=== PATIENT | male | born 1930 | race Caucasian/White ===

== ENCOUNTER 2017-08-02 04:16 | Inpatient (IN) | payer MEDICARE ==
[2017-08-02 04:28] LABS: Glucose,Whole Blood 91 mg/dL (75-99)
--- NOTE | 2017-08-02 04:29 | ED ---
Neuro HPI - General Stated Complaint: weakness Time Seen by Provider: 08/02/17 04:20 Source: patient, family, EMS Mode of arrival: EMS Limitations: no limitations - History of Present Illness -: hour(s) Initial Comments: 's patient is an 86-year-old man who comes to the hospital by ambulance to be evaluated because he thought he was having a stroke. Patient states that he had awakened around 2 in the morning to urinate. He found that he was not able to get his feet to move. He states that it seemed to be affecting both sides equally. He denies having a focality to the leg weakness. The patient also reportedly was having trouble with expressing himself. He was not able to get his words out. Location: speech, left leg, right leg History of same: No Place: home Quality: weak Improves With: none Worsens With: none On Anticoagulants: No Context: sudden onset - Related Data Allergies/Adverse Reactions: Allergies Allergy/AdvReac Type Severity Reaction Status Date / Time cephalexin [From Keflex] Allergy Rash/Hives Verified 08/02/17 04:25 Penicillins Allergy Rash/Hives Verified 08/02/17 04:25 Review of Systems ROS Statement: Those systems with pertinent positive or pertinent negative responses have been documented in the HPI. ROS Other: All systems not noted in ROS Statement are negative. Constitutional: Reports: weakness. Denies: fever, chills Eyes: Denies: vision change Respiratory: Denies: cough, dyspnea Cardiovascular: Denies: chest pain, palpitations, syncope Gastrointestinal: Denies: abdominal pain, vomiting, diarrhea Genitourinary: Denies: dysuria, hematuria Musculoskeletal: Denies: back pain Skin: Denies: rash Neurological: Reports: weakness (Bilateral legs), abnormal gait. Denies: headache, numbness, paresthesias General Exam Limitations: no limitations General appearance: alert, in no apparent distress Head exam: Present: atraumatic, normocephalic Eye exam: Present: normal appearance. Absent: scleral icterus, conjunctival injection ENT exam: Present: normal oropharynx Neck exam: Present: normal inspection, full ROM Respiratory exam: Present: normal lung sounds bilaterally. Absent: respiratory distress, wheezes, rales, rhonchi, stridor Cardiovascular Exam: Present: regular rate, normal rhythm, normal heart sounds. Absent: systolic murmur, diastolic murmur, rubs, gallop GI/Abdominal exam: Present: soft. Absent: distended, tenderness, guarding, rebound, mass Extremities exam: Present: normal inspection, normal capillary refill. Absent: pedal edema, calf tenderness Back exam: Present: normal inspection. Absent: CVA tenderness (R), CVA tenderness (L) Neurological exam: Present: alert. Absent: oriented X3 Skin exam: Present: warm, dry, intact, normal color. Absent: rash Stroke MDM - Lab Data Lab Results 08/02/17 Range/Units 04:27 POC Glucose (mg/dL) 91 (75-99) mg/dL POC Glu Edge Burnisher ID Yamel Cooney - EKG Data -: EKG Interpreted by Tn EKG shows normal: sinus rhythm, axis (Normal), intervals (Normal), QRS complexes (Left anterior fascicular block) Rate: normal (Rate 66 bpm) When compared to previous EKG there are: no significant change Past Medical History Past Medical History: Dementia Additional Past Medical History / Comment(s): prostate cancer, skin cancer History of Any Multi-Drug Resistant Organisms: None Reported Past Surgical History: Hernia Repair Past Psychological History: No Psychological Hx Reported Smoking Status: Never smoker Past Alcohol Use History: None Reported Past Drug Use History: None Reported Course Vital Signs 08/02/17 04:19 Temperature 97.5 F L Pulse Rate 66 Respiratory 16 Rate Blood Pressure 202/107 O2 Sat by Pulse 98 Oximetry Disposition Referrals: Ronnie Lindsey DO [Primary Care Provider] - 1-2 days
[2017-08-02 04:38] LABS: Basophils % (A) 0 %; Eosinophils # (A) 0.3 k/uL (0-0.7); Eosinophils % (A) 4 %; HCT 46.1 % (39.0-53.0); HGB 15.8 gm/dL (13.0-17.5); Lymphocytes # (A) 0.9 k/uL (1.0-4.8); Lymphocytes % (A) 14 %; MCHC 34.3 g/dL (31.0-37.0); MCV 84.7 fL (80.0-100.0); Mean Platelet Volume 7.2; Monocytes # (A) 0.4 k/uL (0-1.0); Monocytes % (A) 7 %; Neutrophils # (A) 4.6 k/uL (1.3-7.7); Neutrophils % (A) 74 %; Platelet Count 181 k/uL (150-450); RBC 5.44 m/uL (4.30-5.90); RDW 13.9 % (11.5-15.5); WBC 6.2 k/uL (3.8-10.6)
[2017-08-02 04:46] LABS: ALT 31 U/L (21-72); AST 24 U/L (17-59); Albumin 3.7 g/dL (3.5-5.0); Alkaline Phosphatase 95 U/L (38-126); Anion Gap 11 mmol/L; Blood Urea Nitrogen 19 mg/dL (9-20); Calcium 9.3 mg/dL (8.4-10.2); Carbon Dioxide 26 mmol/L (22-30); Chloride 108 mmol/L (98-107); Glucose 93 mg/dL (74-99); Partial Thromboplastin Time 25.2 sec (22.0-30.0); Potassium 4.3 mmol/L (3.5-5.1); Sodium 145 mmol/L (137-145); Total Bilirubin 0.5 mg/dL (0.2-1.3); Total Protein 6.2 g/dL (6.3-8.2)
[2017-08-02 04:58] LABS: Creatine Kinase 33 U/L (55-170)
--- NOTE | 2017-08-02 05:02 | CT ---
EXAMINATION TYPE: CT brain wo con DATE OF EXAM: 08/02/2017 COMPARISON: NONE HISTORY: NEURO DEFICITS CT DLP: 1054.20 mGycm Automated exposure control for dose reduction was used. FINDINGS: There is some cerebral cortical atrophy. There is no mass effect nor midline shift. There is no sign of intracranial hemorrhage. There are patchy areas of hypodensity in the periventricular white matter with scattered lacunar infarcts. The calvarium is intact. There is thinning of the corpus callosum. IMPRESSION: CEREBRAL ATROPHY AND CHRONIC SMALL VESSEL ISCHEMIA. BILATERAL LACUNAR INFARCTS. NO ACUTE INTRACRANIAL ABNORMALITY.
--- NOTE | 2017-08-02 05:08 | XR ---
EXAMINATION TYPE: XR chest 2V DATE OF EXAM: 08/02/2017 COMPARISON: NONE HISTORY: Neuro deficits. Weakness TECHNIQUE: Frontal and lateral views of the chest are obtained. FINDINGS: There is no heart failure nor confluent pneumonic infiltrate. Costophrenic angles are kaykay r. Mediastinum is normal. There are chest leads. Bony thorax is intact. IMPRESSION: No active cardiopulmonary disease.
[2017-08-02 05:11] LABS: Troponin I <0.012 ng/mL (0.000-0.034)
[2017-08-02] MEDS ORDERED: ASPIRIN 325 MG TAB PO STA (06:38)
[2017-08-02] MEDS: SODIUM CHLORIDE 0.9% 1,000 ML IV SCH ×2 (07:51→15:34)
[2017-08-02] MEDS: FAMOTIDINE 20 MG TAB PO SCH ×2 (08:11→13:03)
--- NOTE | 2017-08-02 10:16 | CT ---
CT brain without contrast HISTORY: Right facial droop, dysphasia Helical acquisition through the brain. Exam correlated to prior CT brain of same date earlier time. There is some motion on the exam. There is evidence of chronic small vessel ischemia as on prior exam, lacunar infarcts are noted bilat erally involving the basal ganglia on the right, thalamus and basal ganglia on the left. Periventricu lar white matter shows low attenuation. There is no hemorrhage or hydrocephalus. Stinson-white different iation appears maintained. The calvarium is intact. Mild mucosal disease present in the maxillary sin us. IMPRESSION: Stable exam. No acute abnormalities evident. Chronic small vessel ischemic changes as sharee cribed.
--- NOTE | 2017-08-02 10:29 | US ---
EXAMINATION TYPE: US carotid duplex BILAT DATE OF EXAM: 08/02/2017 COMPARISON: NONE CLINICAL HISTORY: Stenosis. weakness EXAM MEASUREMENTS: RIGHT: Peak Systolic Velocity (PSV) cm/sec ----- Right CCA: 76.8 ----- Right ICA: 74.6 ----- Right ECA: 132.2 ICA/CCA ratio: 1.0 RIGHT: End Diastole cm/sec ----- Right CCA: 13.1 ----- Right ICA: 15.3 ----- Right ECA: 12.8 LEFT: Peak Systolic Velocity (PSV) cm/sec ----- Left CCA: 88.5 ----- Left ICA: 109.6 ----- Left ECA: 183.3 ICA/CCA ratio: 1.2 LEFT: End Diastole cm/sec ----- Left CCA: 15.7 ----- Left ICA: 30.3 ----- Left ECA: 16.0 VERTEBRALS (direction of flow): Right Vertebral: unable to visualize Left Vertebral: Antegrade Rhythm: Normal *Technical limitations, patient unable to hold still during exam. Mild plaque right bifurcation. Mild to moderate plaque left bifurcation. Increased velocities left ECA. Unable to visualize right verteb ral artery - unable to detect any blood flow at this time IMPRESSION: 1. Mild bilateral calcific atheromatous changes of the carotid arterial systems. No hemodynamically s ignificant stenosis within either visualized common carotid artery or internal carotid artery. 2. Inability to visualize the right vertebral artery during the examination given technical limitatio ns as described above. CTA could be performed to evaluate for patency. 3. 50-69% stenosis within the bilateral external carotid arteries is incidentally seen.
--- NOTE | 2017-08-02 10:29 | CT ---
EXAMINATION TYPE: CODE STROKE: CTA head neck DATE OF EXAM: 08/02/2017 HISTORY: Rt facial droop, dysphagia COMPARISON: NONE CT DLP: 281.5 mGycm. Automated Exposure Control for Dose Reduction was Utilized. TECHNIQUE: CTA scan of the neck is performed with IV Contrast, patient injected with 65 mL of Isovue 370, axial images are obtained, coronal and sagittal reformatted images are reviewed. Three-D recons tructed images are created on an independent workstation and reviewed. FINDINGS: Carotid/Vascular Structures: Thoracic aorta is patent. 3 super aortic branch vessels are present. The left and right common carotid, internal and external carotid arteries are patent, no evidence stenos is. Left and right subclavian arteries are patent. Left vertebral artery is dominant, right vertebral artery is diminutive. Basilar artery also somewhat diminutive and not well seen in its distal aspect. Internal carotid arteries are patent bilaterally, there is no evident embolus or dissection. Other: There is dental amalgam causing some artifact over portions of the exam. Lung apices are unrem arkable. IMPRESSION: No evident embolism or dissection. Diminutive basilar artery, portion of the basilar jerald ry is not visualized. MRA may be of benefit.
[2017-08-02] MEDS: ASPIRIN 300 MG SUPP RECTAL SCH (10:34)
[2017-08-02] MEDS: CLOPIDOGREL 75 MG TAB PO SCH ×2 (10:44→13:03)
[2017-08-02 16:37] LABS: Glucose,Whole Blood 89 mg/dL (75-99)
--- NOTE | 2017-08-02 17:21 | P.CNNES ---
History of Present Illness Consult date: 08/02/17 Requesting physician: Navdeep Martinez Reason for Consult: CVA History of Present Illness: Patient is a pleasant 86-year-old male who is being evaluated by the neurology service on 08/02/2017 per the request of Dr. Martinez for CVA. Patient has a past medical history of dementia, prostate cancer and skin cancer. Patient is having speech difficulty and unable to provide history. History is obtained from staff and the chart. Patient states he woke up about 2 AM to urinate. Reportedly he was unable to get his feet to move to allow him to walk. This is affecting both sides equally. Patient was also having trouble with speech. Patient was having expressive aphasia. He was brought to [facility] for further evaluation. CT of the brain was done on admission which showed cerebral atrophy and chronic small vessel ischemia. CT also revealed bilateral lacunar infarcts. No hemorrhagic process. Carotid Doppler was done which showed no hemodynamically significant stenosis. Staff reports patient was able to converse this morning and he was sitting up eating breakfast. Patient suddenly lost ability to speak. Code stroke was called and patient went for a stat CT of the brain which was read as stable as compared to initial CT of the brain. CTA was obtained which showed no evidence of embolism or dissection. Patient was on aspirin 81 mg by mouth daily in the home setting. Vital signs on admission included temperature 97.5, pulse 66, respiratory rate 16, blood pressure 202/107, and oxygen saturation 98% on room air. Labs on admission were essentially unremarkable. At the time of my evaluation, patient is resting comfortably in bed and appears to be in no acute distress. Patient is awake and alert however he is extremely weak. No speech noted. Review of Systems REVIEW OF SYSTEMS: Otherwise unremarkable and noncontributory. Past Medical History Past Medical History: Dementia, Hypertension, Memory Impairment, Osteoarthritis (OA) Additional Past Medical History / Comment(s): Prostate cancer with radiation treatments, melanoma skin cancer with removal R upper arm, past HTN but was taken off meds, arthritis multiple joints, low back pain if he walks too far. History of Any Multi-Drug Resistant Organisms: None Reported Past Surgical History: Hernia Repair Additional Past Surgical History / Comment(s): Bilateral inguinal hernia repairs , bilateral cataract removals/IOL, melanoma removed R upper arm, colonoscopies. Past Anesthesia/Blood Transfusion Reactions: No Reported Reaction Smoking Status: Never smoker - Past Family History Mother Family Medical History: Hypertension Additional Family Medical History / Comment(s): Pt states he mother had multiple surgeries but cannot recall what kinds. Father Family Medical History: Respiratory Disorder Additional Family Medical History / Comment(s): Father worked in the [employer]. He of black lung disease at the age of 52 yrs. Medications and Allergies Home Medications Medication Instructions Recorded Confirmed Type Aspirin 325 mg PO Q4H PRN 08/02/17 08/02/17 History Aspirin EC [Ecotrin Low Dose] 81 mg PO DAILY 08/02/17 08/02/17 History Cholecalciferol [Vitamin D3] 1,000 unit PO BID@0700,1200 08/02/17 08/02/17 History Donepezil [Aricept] 10 mg PO DAILY 08/02/17 08/02/17 History Tamsulosin [Flomax] 0.8 mg PO HS 08/02/17 08/02/17 History Allergies Allergy/AdvReac Type Severity Reaction Status Date / Time cephalexin [From Keflex] Allergy Rash/Hives Verified 08/02/17 06:59 Penicillins Allergy Rash/Hives Verified 08/02/17 06:59 Physical Examination - Vital Signs Vital Signs: Vital Signs Temp Pulse Pulse Pulse Resp BP BP 08/02/17 15:38 98.3 F 70 18 192/88 08/02/17 13:38 61 18 187/78 08/02/17 13:08 74 18 182/77 08/02/17 11:38 97.6 F 59 L 18 179/83 08/02/17 11:14 59 L 18 175/80 08/02/17 10:23 68 18 173/75 08/02/17 10:08 68 18 169/77 08/02/17 09:53 77 18 190/86 08/02/17 09:38 67 18 184/91 08/02/17 08:38 65 18 173/84 08/02/17 07:57 65 18 183/82 08/02/17 07:38 67 18 194/79 08/02/17 06:07 66 18 175/82 08/02/17 04:41 62 18 168/80 08/02/17 04:19 97.5 F L 66 16 202/107 Pulse Ox 08/02/17 15:38 97 08/02/17 13:38 95 08/02/17 13:08 96 08/02/17 11:38 96 08/02/17 11:14 97 08/02/17 10:23 97 08/02/17 10:08 95 08/02/17 09:53 95 08/02/17 09:38 97 08/02/17 08:38 08/02/17 07:57 95 08/02/17 07:38 08/02/17 06:07 94 L 08/02/17 04:41 95 08/02/17 04:19 98 Intake and Output 08/02/17 08/02/17 08/02/17 06:59 14:59 22:59 Other: Weight 63.503 kg PHYSICAL EXAM: GENERAL APPEARANCE: Patient is a well-developed, male who appears to be in no acute distress. HEENT: Normocephalic, atraumatic, no facial asymmetry is seen. Neck is supple with no masses felt. CARDIOVASCULAR: Regular rate and rhythm. ABDOMEN: Nontender, nondistended. EXTREMITIES: Show no edema or clubbing. NEUROLOGICAL EXAM: Patient is awake, alert, and aphasic. Patient does move all 4 extremities to command but he is unable to lift extremities up off the bed. Strength is 2/5 in all 4 extremities. No facial asymmetry is seen on cranial nerve testing. Sensory exam is normal to light touch in all 4 extremities. No tremors or seizure-like activity noted. Results - Laboratory Findings CBC and BMP: 08/02/17 04:24 08/02/17 04:24 Abnormal Lab Findings: Abnormal Labs 08/02/17 08/02/17 08/02/17 04:24 04:24 04:24 Lymphocytes # 0.9 L Chloride 108 H Total Creatine Kinase 33 L Total Protein 6.2 L Assessment and Plan Plan: Impression: 1. CVA 2. Expressive aphasia 3. Generalized weakness 4. Hypertension 5. Dementia 6. History of prostate cancer Recommendation: It does appear that patient suffered an acute cerebrovascular accident. As mentioned above, CT of the brain revealed bilateral lacunar infarcts. Code stroke was called this morning when patient became aphasic and had increased weakness in all [address] was repeated which was read as stable. CTA showed no embolic ordered dissection process. Patient will need MRI of the brain as there is concern for brain stem CVA. Carotid Dopplers were negative for any hemodynamically significant stenosis. I will switch his aspirin to Plavix. I will order an EEG, fasting lipid panel, and homocysteine level. I will order PT OT and speech to evaluate and treat. Continue neurological checks. I will continue to follow with you. Further recommendations to follow. Thank you for allowing me to participate in the care of your patient. Feel free to call with any questions or concerns. I performed an examination of the patient and discussed the management with the [employer]ARE[employer] WORK[employer]. I have reviewed the W[employer]HOUSE WORKER [employer] notes and agree with the findings and plan of care.
[2017-08-02 20:50] LABS: Glucose,Whole Blood 87 mg/dL (75-99)
--- NOTE | 2017-08-02 23:46 | HP ---
HISTORY AND PHYSICAL DATE OF ADMISSION: 08/02/2017 DATE OF SERVICE: 08/02/2017 PRESENTING COMPLAINT: Difficulty walking, speech. HISTORY OF PRESENTING COMPLAINT: This is an 86-year-old patient of Dr. Lindsey. History is obtained by the ER physician, the notes, the nursing. The patient's chronic stable medical conditions include dementia, hypertension, patient was off medications, osteoarthritis. The patient does get back pain while walking and history of prostate cancer treated with radiation treatment. The patient got up this morning, finding it difficult to walk and some trouble with his speech. He was not able to get his words out. Subsequently late in the morning in the ER, the patient stopped speaking totally. Repeat CT scan of the brain was done that did not show anything acute. Dr. Alicea was called because of intense history of stroke. The patient is not felt to be a candidate for tPA. The patient had did have an NG tube placed. The patient is currently not able to give any history, not even following commands. REVIEW OF SYSTEMS: The patient is nonverbal. PAST MEDICAL HISTORY: Dementia, prostate cancer treated with radiation treatment, hypertension off medications, osteoarthritis, back pain while walking. PAST SURGICAL HISTORY: Hernia repair, bilateral inguinal hernia repair, bilateral cataract removal, melanoma removed from the right upper arm. SOCIAL HISTORY: Lives with his . No smoking. The patient was a heavy drinker up to 32 years ago. FAMILY HISTORY: Hypertension. HOME MEDICATIONS: 1. Aspirin 325. 2. Vitamin D3 1000 units p.o. b.i.d. 3. Flomax 0.8 mg p.o. q.h.s. 4. Aricept 10 mg p.o. daily. 5. Aspirin 81 mg p.o. daily. ALLERGIES: To KEFLEX and PENICILLIN. EXAMINATION: VITAL SIGNS: On presentation, 97.5 pulse 56, respirations 16, blood pressure was 202/107, pulse ox 98% on room air on presentation. GENERAL APPEARANCE: Average build, lying in bed, lethargic. EYES: Pupils equal. Conjunctivae normal with arcus senilis. HEENT: External nose and ears normal. Oral cavity normal. NG tube in place. NECK: JVD unable to assess. Mass not palpable. RESPIRATORY: Effort normal. LUNGS: Decreased breath sounds. CARDIOVASCULAR: First and second sounds normal. No edema. ABDOMEN: Soft, nontender. Liver and spleen not palpable. LYMPHATIC: No lymph node palpable in neck or axillae. PSYCHIATRY: Unable to assess. NEUROLOGICAL: Pupils equal, reactive. No facial asymmetry. The patient's reflexes are increased on the right side and plantars are upgoing. The patient is not following commands. Responds to pain and does move his eyes spontaneously. INVESTIGATIONS: White count 6.2, hemoglobin 15.8. Potassium 4.3, BUN and creatinine are normal. Troponin x3 negative. EKG shows normal sinus rhythm. Initial CT scan of the brain showed cerebral atrophy and bilateral lacunar infarct, some scattered. Repeat CT scan of brain as above. Carotid Doppler 50%-69% stenosis within the bilateral external carotid arteries. ASSESSMENT: 1. This patient presents with bilateral lower extremity weakness affecting the speech, initially was finding difficulty focusing words. Then completely progressed. Now patient's sensorium is also altered. Most likely this is a brainstem stroke which seems to have extended, probably affecting the reticular activating system. Most likely this is ischemic stroke. 2. Alzheimer dementia. 3. Essential hypertension. 4. Primary osteoarthritis. PLAN: NG tube was placed in the ER. The patient the patient is getting aspirin through there, getting IV fluids. Will also start the patient on Lipitor. Neuro checks are in place. We will do aspiration precautions. The patient's code status is DO NOT RESUSCITATE. MRI is pending. Prognosis does not appear to be good. Normally with an acute stroke, blood pressure is typically not treated for the initial 24 hours per guidelines at 220 systolic and 120 diastolic. MMODL / IJN: [id number] /
[2017-08-03] MEDS: FAMOTIDINE 20 MG TAB PO SCH ×3 (01:00→22:21)
[2017-08-03] MEDS: ATORVASTATIN 40 MG TAB PO SCH ×2 (01:00→13:23)
[2017-08-03 02:34] LABS: Glucose,Whole Blood 87 mg/dL (75-99)
[2017-08-03] MEDS: SODIUM CHLORIDE 0.9% 1,000 ML IV SCH ×3 (03:00→22:22)
[2017-08-03] MEDS: ENOXAPARIN 40 MG/0.4 ML SYRINGE SQ SCH ×2 (05:53→13:07)
[2017-08-03 05:57] LABS: Glucose,Whole Blood 84 mg/dL (75-99)
[2017-08-03 07:16] LABS: Cholesterol 161 mg/dL (<200); HDL Cholesterol 44 mg/dL (40-60); LDL Cholesterol,Calculated 104 mg/dL (0-99); Triglycerides 66 mg/dL (<150)
[2017-08-03] MEDS ORDERED: ASPIRIN 325 MG TAB PO SCH ×2 (09:00→13:30)
--- NOTE | 2017-08-03 11:56 | MR ---
Brain MR history: Cerebrovascular accident, altered mental status, unresponsive Correlated to CT brain 08/02/2017, CTA brain 08/02/2017 Restricted diffusion is noted within the paramjit bilaterally. Cortical atrophy is again noted. Correspon ding hyperintensity noted on inversion recovery and T2-weighted sequences within the paramjit. There is n o hemorrhage or hydrocephalus. Periventricular confluent and scattered hyperintensities are present o n inversion recovery and T2-weighted sequences likely due to chronic small vessel ischemia. Inflammat ory change present within the ethmoid air cells. IMPRESSION: Subacute pontine infarct.
[2017-08-03] MEDS: ASPIRIN 300 MG SUPP RECTAL SCH (13:22)
[2017-08-03] MEDS: CLOPIDOGREL 75 MG TAB PO SCH (13:24)
[2017-08-03] MEDS: ASPIRIN 325 MG TAB NG-TUBE SCH (13:29)
[2017-08-03] MEDS ORDERED: ASPIRIN 325 MG TAB NG-TUBE SCH (13:30)
[2017-08-03 16:34] LABS: Glucose,Whole Blood 73 mg/dL (75-99)
--- NOTE | 2017-08-03 18:56 | PN ---
PROGRESS NOTE DATE OF SERVICE: August 03, 2017. PRESENT COMPLAINT: Acute stroke. INTERVAL HISTORY: This patient presented with acute stroke. The patient does open his eyes, has NG tube was placed. Maybe following some commands, not able to speak at all. The patient's and daughter at the bedside. REVIEW OF SYSTEMS: Patient is nonverbal. CURRENT MEDICATIONS: Reviewed that include Plavix and Lipitor. PHYSICAL EXAMINATION: Temperature 97.8, pulse 85, respiratory 18, blood pressure 188/84, pulse ox 96% on room air. General appearance: Lying in bed, eyes closed. Eyes: Pupils equal, conjunctivae normal. HEENT external appearance of nose and ears normal. NG tube in place. Neck JVD unable to assess. Mass not palpable. Respiratory effort normal. Lungs decreased breath sounds. Cardiovascular 1st and 2nd sounds normal. No edema. ABDOMEN: Soft. Liver and spleen not palpable. Neurological: Just possibly opens eyes on commands. Bilateral plantars are upgoing. INVESTIGATIONS: LDL 104. MRI of the brain shows infarct in the paramjit. ASSESSMENT: 1. 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 2. Alzheimer's dementia. 3. Moderate cognitive impairment from Alzheimer's dementia. 4. Essential hypertension. 5. Primary osteoarthritis. PLAN: Continue current medication and treatment plan. We will add amlodipine 5 mg through the NG-tube. ADVANCED CARE PLANNING: This was discussed with the patient's and daughter. The patient already has a advanced directive that does discuss DO NOT RESUSCITATE. The patient's overall guarded prognosis was discussed. We will see how the patient does in the next 24-48 hours and if the patient's quality not good, then we will probably may have to go to comfort route. All depends on how this goes. The patient's is the next of kin and other children involved. Questions were answered. In the meantime, continue medication and treatment plan. Continue advanced care planning: Additional 20 minutes were taken in addition to the progress note for this part of the care. MMODL / IJN: [id number] /
[2017-08-03 20:48] LABS: Glucose,Whole Blood 74 mg/dL (75-99)
[2017-08-04] MEDS: DEXTROSE 5%-0.45% NACL 1,000 ML IV SCH ×2 (00:21→19:39)
[2017-08-04] MEDS: amLODIPine 5 MG TAB PO SCH ×2 (00:21→09:16)
[2017-08-04 05:53] LABS: Glucose,Whole Blood 91 mg/dL (75-99)
[2017-08-04] MEDS: CLOPIDOGREL 75 MG TAB PO SCH (09:15)
[2017-08-04] MEDS: FAMOTIDINE 20 MG TAB PO SCH ×2 (09:15→20:43)
[2017-08-04] MEDS: ATORVASTATIN 40 MG TAB PO SCH (09:15)
[2017-08-04] MEDS: ENOXAPARIN 40 MG/0.4 ML SYRINGE SQ SCH (09:15)
[2017-08-04] MEDS: ASPIRIN 325 MG TAB NG-TUBE SCH (09:16)
[2017-08-04 09:24] LABS: Glucose,Whole Blood 91 mg/dL (75-99)
[2017-08-04 11:48] LABS: Glucose,Whole Blood 97 mg/dL (75-99)
[2017-08-04 16:39] LABS: Glucose,Whole Blood 99 mg/dL (75-99)
[2017-08-04] MEDS ORDERED: amLODIPine 5 MG TAB PO ONE (18:00)
--- NOTE | 2017-08-04 18:29 | EEG ---
ELECTROENCEPHALOGRAM REPORT DATE OF SERVICE: August 03, 2017. REASON FOR TESTING: Stroke. DESCRIPTION OF THE PROCEDURE: This EEG was performed using a 21 channel digital electroencephalograph, following international 10-20 system. DESCRIPTION OF THE RECORDING: From the beginning of the tracing, and with patient's eyes closed, the background rhythm was mostly consisting of 7 Hz theta frequency in the posterior occipital leads. No obvious asymmetry is seen. Photic stimulation was performed with a minimal driving response seen. No pathological waves were elicited. Rare movement artifacts are seen. Hyperventilation was not performed. The patient does reach stage II of sleep during the tracing and occasional sleep spindles are seen. No epileptiform discharges were seen. His EKG lead showed a regular rate and rhythm. INTERPRETATION: This asleep and awake EEG is abnormal due to presence of generalized slowing of the background rhythm, mostly in the theta range. This is consistent with mild encephalopathy. No epileptiform discharges were seen. The absence of epileptiform discharges does not rule out the diagnosis of epilepsy, therefore clinical correlation is recommended. MMJULI / IJN: [id number] /
--- NOTE | 2017-08-04 19:42 | P.PN ---
Subjective Progress Note Date: 08/04/17 Patient is an 86-year-old male who is being followed by the neurology service for stroke. Patient does have history of dementia, prostate cancer, and skin cancer. History was obtained from staff and the chart. Patient was brought to [facility] for strokelike symptoms. Computed tomography scan of the brain showed cerebral atrophy and chronic small vessel ischemia. MRI of the brain was obtained which showed acute pontine infarct. Patient had sudden loss of ability to speak and a code stroke was called. Stat CT of the brain was unchanged from prior CT of the brain. CTA was done which showed no evidence of embolism or dissection. Patient opens eyes to stimulation but does not follow commands. There is no speech. Patient is not moving extremities purposefully. Patient does withdraw to pain. At the time of my evaluation, patient appears to be in no acute distress. Family is at the bedside. Objective - Vital Signs Vital signs: Vital Signs Temp 99 F 08/04/17 16:00 Pulse 84 08/04/17 16:00 Resp 22 08/04/17 16:00 BP 160/72 08/04/17 16:00 Pulse Ox 93 L 08/04/17 16:00 Intake & Output 08/04/17 08/04/17 08/05/17 06:59 18:59 06:59 Other: # Voids 1 1 # Bowel Movements 0 - Exam PHYSICAL EXAM: GENERAL APPEARANCE: Patient is a well-developed, male who appears to be in no acute distress. HEENT: Normocephalic, atraumatic, no obvious facial asymmetry is seen. CARDIOVASCULAR: Regular rate and rhythm. ABDOMEN: Nontender, nondistended. EXTREMITIES: Show no edema or clubbing. NEUROLOGICAL EXAM: A meaningful neurological exam could not be performed due to patient's unresponsiveness. Patient does withdraw all 4 extremities to pain. No obvious facial asymmetry is noted. No tremors or seizure-like activity reported. - Labs CBC & Chem 7: 08/02/17 04:24 08/02/17 04:24 Labs: Abnormal Lab Results - Last 24 Hours (Table) 08/03/17 Range/Units 20:46 POC Glucose (mg/dL) 74 L (75-99) mg/dL Assessment and Plan Plan: Impression: 1. CVA 2. Expressive aphasia 3. Generalized weakness 4. Hypertension 5. Dementia 6. History of prostate cancer Recommendation: Patient did suffer an acute cerebrovascular accident with pontine infarct confirmed on the MRI of the brain. CTA showed no embolic ordered dissection process. Carotid Dopplers were negative for any hemodynamically significant stenosis. Continue Plavix 75 mg by mouth daily. EEG showed mild encephalopathy. His fasting lipid panel was within normal limits except for elevated LDL of 104. Serum homocysteine level was within normal limits. Continue neurological checks. Prognosis is guarded. Family in the process of making a decision regarding comfort care. Patient is a DO NOT RESUSCITATE status. I will continue to follow with you on an as needed basis. Any changes in neurological function feel free to call. I performed an examination of the patient and discussed the management with the ASSISTANT DESIGNER. I have reviewed the ASSISTANT DESIGNER notes and agree with the findings and plan of care.
--- NOTE | 2017-08-04 19:53 | PN ---
PROGRESS NOTE DATE OF SERVICE: 08/04/17 PRESENTING COMPLAINT: Acute stroke. INTERVAL HISTORY: There is no change in the patient's symptoms. Opens his eyes, not really following commands. NG tube remains in place. The patient's and daughter at the bedside. Getting some tube medications. REVIEW OF SYSTEMS: Patient is nonverbal. CURRENT MEDICATIONS: Reviewed that include Lipitor, Plavix, and D5W. EXAMINATION: On examination, temperature 98, pulse 72, respiratory 24, blood pressure 125/78, pulse ox 94% on room air. General appearance: Lying in bed. Eyes closed. Pupils equal. Conjunctivae normal. HEENT external appearance of nose and ears normal. NG tube in place. Neck: JVD unable to assess. Mass not palpable. Respiratory effort: Lungs decreased breath sounds. Cardiovascular 1st and 2nd sounds normal. No edema. ABDOMEN: Soft, nontender. Liver and spleen not palpable. Neurological: Does open eyes. Unclear if commands. Bilateral plantars are upgoing. INVESTIGATION: No new workup. Accu-Cheks are noted. ASSESSMENT: 1. 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 2. Alzheimer's dementia. 3. Moderate cognitive impairment from Alzheimer's dementia. 4. Essential hypertension. 5. Primary osteoarthritis. PLAN: Continue medication and treatment plan. Discussed with the patient's and daughter. The patient did not want any supportive care and if by tomorrow there is no change, leading towards hospice. All their questions were answered. MMODL / IJN: [id number] /
[2017-08-04 21:00] LABS: Glucose,Whole Blood 100 mg/dL (75-99)
[2017-08-05] MEDS: DEXTROSE 5%-0.45% NACL 1,000 ML IV SCH ×2 (01:40→15:53)
[2017-08-05 06:21] LABS: Glucose,Whole Blood 97 mg/dL (75-99)
[2017-08-05] MEDS: ATORVASTATIN 40 MG TAB PO SCH (08:30)
[2017-08-05] MEDS: FAMOTIDINE 20 MG TAB PO SCH (08:30)
[2017-08-05] MEDS: ASPIRIN 325 MG TAB NG-TUBE SCH (08:30)
[2017-08-05] MEDS: ENOXAPARIN 40 MG/0.4 ML SYRINGE SQ SCH (08:31)
[2017-08-05] MEDS ORDERED: amLODIPine 10 MG TAB PO SCH (09:00)
[2017-08-05] MEDS ORDERED: amLODIPine 5 MG TAB PO SCH (09:00)
[2017-08-05 09:03] VITALS: RESP 18
[2017-08-05 11:21] LABS: Glucose,Whole Blood 99 mg/dL (75-99)
[2017-08-05] MEDS ORDERED: cloNIDine 0.1 MG/24HR PATCH 1 PATCH PATCH TRANSDERM SCH (16:30)
--- NOTE | 2017-08-05 16:49 | P.PN ---
Subjective Progress Note Date: 08/05/17 Patient is an 86-year-old male who is being followed by the neurology service for stroke. Patient does have history of dementia, prostate cancer, and skin cancer. History was obtained from staff and the chart. Patient was brought to [facility] for strokelike symptoms. Computed tomography scan of the brain showed cerebral atrophy and chronic small vessel ischemia. MRI of the brain was obtained which showed acute pontine infarct. Patient had sudden loss of ability to speak and a code stroke was called. Stat CT of the brain was unchanged from prior CT of the brain. CTA was done which showed no evidence of embolism or dissection. Patient opens eyes to stimulation but does not follow commands. There is no speech. Patient is not moving extremities purposefully. Patient does withdraw to pain. At the time of my evaluation, patient appears to be in no acute distress. Family is at the bedside. 08/05/2017 Patient is an 86-year-old male who is being followed by the neurology service for stroke. MRI of the brain showed acute pontine infarct. Patient's status is unchanged from yesterday. Patient opens eyes to name. Patient does not follow any commands or move extremities purposefully. Family decided to have patient seen by hospice. At the time of my evaluation, patient's lying in bed and appears to be in no acute distress. Objective - Vital Signs Vital signs: Vital Signs Temp 97.9 F 08/05/17 16:04 Pulse 64 08/05/17 16:04 Resp 18 08/05/17 16:04 BP 195/85 08/05/17 16:04 Pulse Ox 94 L 08/05/17 16:04 Intake & Output 08/04/17 08/05/17 08/05/17 18:59 06:59 18:59 Intake Total 225 450 Balance 225 450 Intake: Intake, IV Titration 225 450 Amount Dextrose 5%-0.45% NaCl 1, 225 450 000 ml @ 75 mls/hr IV . [id number] [facility] Rx#:[id number] Other: # Voids 1 1 - Exam PHYSICAL EXAM: GENERAL APPEARANCE: Patient is a well-developed, male who appears to be in no acute distress. HEENT: Normocephalic, atraumatic, no obvious facial asymmetry is seen. CARDIOVASCULAR: Regular rate and rhythm. ABDOMEN: Nontender, nondistended. EXTREMITIES: Show no edema or clubbing. NEUROLOGICAL EXAM: A meaningful neurological exam could not be performed due to patient's unresponsiveness. Patient opens eyes at times. Patient does withdraw all 4 extremities to pain. No obvious facial asymmetry is noted. No tremors or seizure-like activity reported. - Labs CBC & Chem 7: 08/02/17 04:24 08/02/17 04:24 Labs: Abnormal Lab Results - Last 24 Hours (Table) 08/04/17 Range/Units 20:50 POC Glucose (mg/dL) 100 H (75-99) mg/dL Assessment and Plan Plan: Impression: 1. CVA 2. Expressive aphasia 3. Generalized weakness 4. Hypertension 5. Dementia 6. History of prostate cancer Recommendation: Patient did suffer an acute cerebrovascular accident with pontine infarct confirmed on the MRI of the brain. CTA showed no embolic ordered dissection process. Carotid Dopplers were negative for any hemodynamically significant stenosis. Continue Plavix 75 mg by mouth daily. EEG showed mild encephalopathy. His fasting lipid panel was within normal limits except for elevated LDL of 104. Serum homocysteine level was within normal limits. Continue neurological checks. Prognosis is guarded. Family has decided to have hospice see the patient.. Patient is a DO NOT RESUSCITATE status. I will continue to follow with you on an as needed basis. Any changes in neurological function feel free to call. I performed an examination of the patient and discussed the management with the ELECTRICAL LINE SPLICER. I have reviewed the ELECTRICAL LINE SPLICER notes and agree with the findings and plan of care.
[2017-08-05 16:59] LABS: Glucose,Whole Blood 109 mg/dL (75-99)
--- NOTE | 2017-08-05 17:00 | PN ---
PROGRESS NOTE DATE OF SERVICE: 08/05/2017 PRESENTING COMPLAINT: Acute stroke. INTERVAL HISTORY: Patient coughed out his NG tube. Does open his eyes. Not talking. Not following any commands as such. Patient's family discussed with social work nurse about hospice care. REVIEW OF SYSTEMS: Patient is nonverbal. CURRENT MEDICATIONS: Noted, and held because NG tube is now out. PHYSICAL EXAMINATION: Temperature 98.7, pulse 62, respiration 18, blood pressure 179/77, pulse ox 96% on room air. GENERAL APPEARANCE: Lying in bed. Does open eyes. Not following commands. HEENT: External appearance of nose and ears normal. Oral cavity dry. NECK: JVD unable to assess. Mass not palpable. RESPIRATORY: Effort normal. LUNGS: Decreased breath sounds. CARDIOVASCULAR: First and second sounds normal. No edema. ABDOMEN: Soft, nontender. Liver and spleen not palpable. NEUROLOGICAL: Not following commands. Does open his eyes. Limbs are somewhat flaccid. INVESTIGATIONS: Accu-Cheks are noted. ASSESSMENT: 1. 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 2. Alzheimer's dementia. 3. Moderate cognitive impairment from Alzheimer's dementia at baseline. 4. Essential hypertension. 5. Primary osteoarthritis. PLAN: NG tube remains out. I talked to the patient's daughter. She is okay with holding all the medications. No artificial feeding is to be done, per patient's wishes. They are looking into hospice, leaning towards hospice house in [place]. MMODL / IJN: [id number] /
[2017-08-05] MEDS ORDERED: SCOPOLAMINE 1.5MG/72HR PATCH TRANSDERM SCH (17:15)
[2017-08-05 21:19] LABS: Glucose,Whole Blood 103 mg/dL (75-99)
[2017-08-06] MEDS: DEXTROSE 5%-0.45% NACL 1,000 ML IV SCH (04:29)
[2017-08-06 05:58] VITALS: BP 191/93; PULSE 62; TEMP 98.5
[2017-08-06] MEDS: ENOXAPARIN 40 MG/0.4 ML SYRINGE SQ SCH (11:11)
--- NOTE | 2017-08-07 06:34 | DS ---
DISCHARGE SUMMARY DATE OF ADMISSION: 08/03/17 DATE OF DISCHARGE: August 06, 2017. FINAL DIAGNOSES: 1. 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 2. Moderate cognitive impairment from Alzheimer's dementia at baseline. 3. Essential hypertension. 4. Primary osteoarthritis. HOSPITAL COURSE: This patient with stroke confirmed to be in the paramjit. The patient was not following commands. Continued to do poorly. Per patient's wishes, which family expressed, patient was not to get any artificial feeding. Family decided to make the patient hospice and take the patient down to the [facility] in [place]. Today the care was discussed again with the and the son. Questions were answered. Also spoke to the social staff worker. PHYSICAL EXAMINATION: On examination, patient's eyes are open. Not following any commands. Some gurgliness in the chest. The limbs are flaccid. Does not move the leg spontaneously. DISCHARGE MEDICATIONS: 1. Ativan 1 mg q.4 for anxiety. 2. Morphine, Roxanol 5 mg q.4 p.r.n. for pain. 3. Scopolamine patch 1.5 every 72 hours. DISPOSITION: [facility]. Copy to Dr. Lindsey. Discharge planning more than 35 minutes. MMODL / IJN: [id number] /
== END 2017-08-06 15:30 | disposition hospice, inpatient (51) | DRG 66 ==
LOC: EC 04:16 → 6SEL 06:38 → OBSVTOIN 08-03 15:37 → 5ONC 08-05 21:32
PROVIDERS: ADMIT Hospitalist; ATTEND Hospitalist
DX: I63.9 Cerebral infarction, unspecified (principal); F02.80 Dementia in other diseases classified elsewhere, unspecified severity, without behavioral disturbance, psychotic disturbance, mood disturbance, and anxiety; G30.9 Alzheimer's disease, unspecified; I10 Essential (primary) hypertension; M19.91 Primary osteoarthritis, unspecified site; R47.01 Aphasia; G83.9 Paralytic syndrome, unspecified; R29.711 NIHSS score 11; Z66 Do not resuscitate; Z51.5 Encounter for palliative care; Z79.82 Long term (current) use of aspirin; Z79.899 Other long term (current) drug therapy; Z82.49 Family history of ischemic heart disease and other diseases of the circulatory system; Z85.46 Personal history of malignant neoplasm of prostate; Z85.820 Personal history of malignant melanoma of skin; Z92.3 Personal history of irradiation; Z87.891 Personal history of nicotine dependence; Z88.1 Allergy status to other antibiotic agents; Z88.0 Allergy status to penicillin
CPT/HCPCS: 36415; 70450; 70496; 70498; 70551; 71046; 80053; 80061; 82550; 82553; 83090; 84484; 85025; 85610; 85730; 90935; 93005; 93880; 95819; 99285